=== PATIENT | male | born 1975 | race Caucasian/White ===

== ENCOUNTER 2017-08-14 21:20 | Emergency (ER) | payer MEDICAID, MEDICARE ==
[~2017-08-14] VITALS: Ht 172.7 cm; Wt 68.2 kg
[2017-08-14 21:23] VITALS: BP 125/85
== END 2017-08-14 22:10 | disposition home or self-care (01) ==
LOC: ED 22:03
DX: L03.113 Cellulitis of right upper limb (principal)
CPT/HCPCS: 99283